=== PATIENT | female | born 1965 | race Caucasian/White ===

== ENCOUNTER 2024-10-21 06:14 | Observation (INO) | payer BC ==
[~2024-10-21] VITALS: Ht 167.6 cm; Wt 68.5 kg
[~2024-10-21 06:14] MED LIST: BIOT10TA2 PO; CYCL-707 PO; HM C500T4 PO; INDA1.253 PO; MULTTAB86 PO; NITR50CA34 PO; OMEG12003 PO; POTA-149 PO; RA N1TAB PO; RA T500C2 PO; SIMV10TA21 PO; VITA-243 PO; VITA100093 PO; [UNRECOGNIZED DRUG - OTHER] PO
[2024-10-21] MEDS: SCOPOLAMINE 1MG TRANSDERMAL PATCH TOP ONE (07:15)
[2024-10-21] MEDS ORDERED: MIDAZOLAM INJ 2MG/2ML VIAL As Ordered ONE (07:23)
[2024-10-21] MEDS ORDERED: fentaNYL 250 MCG/5 ML INJECTION As Ordered ONE (07:23)
[2024-10-21] MEDS ORDERED: propofoL 200 MG/20 ML VIAL As Ordered ONE (07:23)
[2024-10-21] MEDS ORDERED: ONDANSETRON 4MG 2ML VIAL As Ordered ONE (07:23)
[2024-10-21] MEDS ORDERED: ROCURONIUM BROMIDE 50MG/5ML VIAL As Ordered ONE (07:23)
[2024-10-21] MEDS ORDERED: LIDOCAINE 2% 100MG/5ML SDV (FOR ANES.) As Ordered ONE (07:23)
[2024-10-21] MEDS ORDERED: dexmedeTOMIDine (4MCG/ML)200MCG/50ML BTL (PRECEDEX) As Ordered ONE (07:23)
[2024-10-21] MEDS ORDERED: LR 1,000 ML IV SCH (07:25)
[2024-10-21] MEDS ORDERED: LACRILUBE (AKWA TEARS) OPHTH OINT 3.5GM As Ordered ONE (07:28)
[2024-10-21] MEDS ORDERED: HYDROmorphone HCL 2MG/ML 1ML VIAL As Ordered ONE (08:00)
[2024-10-21] MEDS: HEPARIN SOD (PORCINE) 5000UNITS/ML 1ML VIAL/SYRINGE SQ ONE (08:15)
[2024-10-21] MEDS: ceFAZolin SOD 2 GM in IV 1 EA IV ONE (08:18)
[2024-10-21] MEDS ORDERED: SUGAMMADEX SODIUM 500 MG/5 ML VIAL (BRIDION) As Ordered ONE (08:26)
[2024-10-21] MEDS ORDERED: ACETAMINOPHEN 1000MG/100ML IV BAG As Ordered ONE (08:26)
[2024-10-21] MEDS: BUPivacaine LIPOSOME/PF 266MG 20ML VIAL (13.3MG/ML)(EXPAREL) As Ordered ONE (09:08)
[2024-10-21] MEDS: EPINEPHrine INJ 1 MG/ML 1ML AMP As Ordered ONE (09:10)
[2024-10-21] MEDS: LIDOCAINE 1% MDV 20ML VIAL As Ordered ONE (09:10)
[2024-10-21] MEDS ORDERED: ePHEDrine SULFATE 25 MG/5 ML(5MG/ML) SYRINGE As Ordered ONE (09:11)
[2024-10-21] MEDS: GENTAMICIN SULF 80MG/2ML VIAL As Ordered ONE (09:11)
[2024-10-21] MEDS ORDERED: ONDANSETRON 4MG 2ML VIAL IV PRN ×2 (10:15→10:25)
[2024-10-21] MEDS ORDERED: HYDROMORPHONE HCL 0.5 MG/ 0.5 ML SYRINGE IV PRN (10:15)
[2024-10-21] MEDS ORDERED: PERCOCET 5MG/325MG TAB PO PRN (10:25)
[2024-10-21] MEDS: LR 1,000 ML IV SCH (11:00)
[2024-10-21] MEDS: ceFAZolin 1GM VIAL As Ordered ONE (11:01)
[2024-10-21] MEDS: oxyCODONE 5MG TAB PO PRN (11:01)
[2024-10-21 15:15] VITALS: BP 106/65; TEMP 97.9; O2SAT 96
[2024-10-21] MEDS: ceFAZolin SOD 2 GM in IV 1 EA IV SCH (16:13)
[2024-10-21] MEDS ORDERED: ESTR10TA PV (17:12)
[2024-10-21] MEDS ORDERED: HOME MED LIST COMPLETE! XX SCH (17:15)
[2024-10-21] MEDS ORDERED: PILL CUTTER 1 EACH XX PRN (18:20)
[2024-10-21] MEDS: ACETAMINOPHEN 325 MG TAB PO PRN (19:58)
[2024-10-21 20:10] VITALS: BP 110/68; TEMP 97.9; O2SAT 97
[2024-10-21] MEDS: VITAMIN D 1,000 INTERNATIONAL UNITS TABLET PO SCH (20:10)
[2024-10-22 00:34] VITALS: BP 95/56; TEMP 97.6; O2SAT 97
[2024-10-22 04:00] VITALS: BP 97/59; TEMP 97.7; O2SAT 96
[2024-10-22 08:30] VITALS: BP 95/59; TEMP 98.8; O2SAT 97
[2024-10-22] MEDS: POTASSIUM CHLORIDE 10MEQ SR TABLET PO SCH (08:46)
[2024-10-22] MEDS: INDAPAMIDE 1.25MG TABLET PO SCH (08:46)
[2024-10-22] MEDS: ASCORBIC ACID 500 MG TAB PO SCH (08:47)
[2024-10-22] MEDS: SIMVASTATIN 10 MG TAB PO SCH (08:47)
[2024-10-22] MEDS: traMADol 50 MG TAB PO PRN (09:09)
[2024-10-22] MEDS ORDERED: TRAM50TA2 PO (10:45)
[2024-10-22 12:30] VITALS: BP 121/73; TEMP 98.2; O2SAT 96
== END 2024-10-22 13:10 | disposition home or self-care (01) ==
LOC: M SDC 06:14 → M RR INP 06:15 → M MS5PR 15:10
PROVIDERS: ADMIT Plastic Surgery Surgery of the Hand; ATTEND Plastic Surgery Surgery of the Hand
DX: N65.1 Disproportion of reconstructed breast (principal); Z85.3 Personal history of malignant neoplasm of breast; L98.7 Excessive and redundant skin and subcutaneous tissue; Z88.5 Allergy status to narcotic agent; Z79.899 Other long term (current) drug therapy
CPT/HCPCS: 19380; 88300; 96365; 96366; J0131; J0171; J0665; J0666; J0690; J1100; J1171; J1580; J2250; J2405; J3010